=== PATIENT | female | born 1990 | race Caucasian/White ===

== ENCOUNTER 2016-07-28 20:56 | Emergency (ER) | payer OTHER ==
[~2016-07-28] VITALS: Ht 162.6 cm; Wt 78.3 kg
[~2016-07-28 20:56] MED LIST: ACYCLOVIR800 MG PO; AMOX TR-K CLV1 EAC4 PO; BACTRIM,SEPT1 TABLET PO; CEFTIN500 MG PO; CIPRO500 MG PO; CIPROFLOXACIN500 M1; CLEOCIN300 MG PO; DOXYCYCLINE HY100 MG PO; ENDOCET 5-3251 EACH PO; FIORICET WI1 CAPSULE PO; FLEXERIL10 MG PO; FLONASE16 G1 BOTH NARES; HYDROCODON-ACE1 EAC7 PO; KEFLEX500 MG PO; LEVAQUIN500 MG PO; LIDOCAINE20 MG/1 M5 TP; MACRODANTIN100 MG PO; MAGIC MOUTHWASH1 ML MM; METRONIDAZOLE500 MG; MOTRIN600 MG PO; MOTRIN800 MG PO; Motrin PO; NAPROSYN500 MG PO; NITROFURANTOIN100 M3 PO; NORCO 5/3251 TABLET PO; ONDANSETRON ODT8 MG PO; OXYCODONE H5 MG/5 ML PO; PERCOCET 5/31 TABLET PO; PHENAZOPYRIDIN200 MG; PHENERGAN25 MG PR; PREDNISONE50 MG PO; PRENATAL TABLE1 EAC3 PO; PROMETHAZINE HC25 M1 PO; REGLAN5 MG PO; ROBITUSSIN DM118 ML PO; SERTRALINE HCL50 MG PO; SPRINTEC1 EACH; TAMIFLU75 MG PO; TYLENOL EXTRA500 MG PO; TYLENOL REGULA325 MG PO; TYLENOL W/COD1 COMBO PO; TYLENOL WITH C1 EACH PO; ULTRAM50 MG PO; VALTREX1000 MG PO; VENTOLIN HFA18 GM IH; Vibramycin, Doryx PO; XANAX0.25 MG PO; ZITHROMAX Z-PA250 MG PO; ZOFRAN ODT4 MG PO; ZOFRAN ODT8 MG PO; ZOFRAN4 MG PO; ZOFRAN8 MG PO; ZOLOFT50 MG PO
[2016-07-28 21:19] LABS: ADD MIUA? YES; BILIRUBIN NEGATIVE; BLOOD TRACE; COLOR YELLOW ((YELLOW)); GLUCOSE (STRIP) NEGATIVE; KETONES NEGATIVE; LEUKOCYTES TRACE; NITRITE NEGATIVE; PH, URINE 6.5 (5-8); PROTEIN (STRIP) NEGATIVE; SPECIFIC GRAVITY 1.009 (1.000-1.030); UROBILINOGEN 0.2 MG/DL (0.2-1.0)
[2016-07-28 21:20] LABS: HEMATOCRIT 35.7 % (36.0-46.0); MCH 25.5 PG (29.0-34.0); MCHC 31.7 G/DL (30.0-36.0); MCV 80.6 FL (83-99); MEAN PLAT.VOLUME 9.7 uM^3 (9.5-12.4); PLATELET COUNT 379 K/uL (156-360); RBC DIS.WIDTH-SD 55.1 % (39-53); RED BLOOD COUNT 4.43 M/uL (3.80-5.20); WHITE BLOOD COUNT 8.8 K/uL (4.1-10.2)
[2016-07-28 21:28] LABS: CHLORIDE 105 mEq/L (99-109); SODIUM 137 mEq/L (136-147)
[2016-07-28 21:31] LABS: GLUCOSE 87 mg/dL (70-99)
[2016-07-28 21:32] LABS: BACTERIA NONE SEEN; CASTS NONE SEEN /LPF; CRYSTALS NONE SEEN; EPITHELIAL CELLS 1+; MUCUS NONE SEEN; PATHOLOGICAL CAST NONE SEEN; RED BLOOD CELLS 0-5 /HPF (0-5); SMALL ROUND CELL NONE SEEN; UCUL ADDED? NO; YEAST-LIKE CELL NONE SEEN
[2016-07-28 21:32] LABS: ANION GAP 9 MEQ/L (2-14); TOTAL BILIRUBIN 0.3 mg/dL (0.0-1.0)
[2016-07-28 21:34] LABS: ALKALINE PHOSPHATASE 85 IU/L (3-129); GFR ESTIMATE (CALCULATED) > 59 mL/min/
[2016-07-28 21:35] LABS: UREA NITROGEN (BUN) 7 mg/dL (9-23)
[2016-07-28 22:01] LABS: QUANTITATIVE HCG 21120.9 MIU/ML
[2016-07-28] MEDS ORDERED: ZOFRAN4 MG PO (22:19)
[2016-07-28 23:02] VITALS: BP 107/60
== END 2016-07-28 23:04 | disposition home or self-care (01) ==
LOC: EME 20:56
DX: O21.9 Vomiting of pregnancy, unspecified (principal); O26.891 Other specified pregnancy related conditions, first trimester; R10.30 Lower abdominal pain, unspecified; Z3A.01 Less than 8 weeks gestation of pregnancy; Z87.442 Personal history of urinary calculi; Z87.01 Personal history of pneumonia (recurrent)
CPT/HCPCS: 80053; 81003; 84702; 85027; 99281; 99284

== ENCOUNTER 2016-07-30 18:36 | Emergency (ER) | payer OTHER ==
[~2016-07-30] VITALS: Ht 162.6 cm; Wt 77.7 kg
[2016-07-30 19:24] LABS: ADD MIUA? YES; BILIRUBIN NEGATIVE; BLOOD LARGE; COLOR YELLOW ((YELLOW)); GLUCOSE (STRIP) NEGATIVE; KETONES NEGATIVE; LEUKOCYTES SMALL; NITRITE NEGATIVE; PROTEIN (STRIP) NEGATIVE; SPECIFIC GRAVITY 1.006 (1.000-1.030); UROBILINOGEN 0.2 MG/DL (0.2-1.0)
[2016-07-30 19:29] LABS: HEMATOCRIT 35.6 % (36.0-46.0); MCH 25.4 PG (29.0-34.0); MCHC 31.2 G/DL (30.0-36.0); MCV 81.5 FL (83-99); MEAN PLAT.VOLUME 10.5 uM^3 (9.5-12.4); PLATELET COUNT 344 K/uL (156-360); RBC DIS.WIDTH-CV 19.6 % (11.8-14.6); RBC DIS.WIDTH-SD 57.3 % (39-53); RED BLOOD COUNT 4.37 M/uL (3.80-5.20)
[2016-07-30 19:30] LABS: EOSINOPHIL (%) 0.9 % (0-5); EOSINOPHIL COUNT 0.1 K/uL (0-0.3); IMMATURE GRANULOCYTE (%) 0.1 % (0.0-0.7); IMMATURE GRANULOCYTE COUNT 0.1 K/uL; LYMPHOCYTE COUNT 1.9 K/uL (1.0-2.8); MONOCYTE (%) 13.5 % (3-12); MONOCYTE COUNT 0.9 K/uL (0-0.8); NEUTROPHIL (%) 57.9 % (45-76)
[2016-07-30 19:36] LABS: EPITHELIAL CELLS 1+
[2016-07-30 19:37] LABS: CHLORIDE 107 mEq/L (99-109); SODIUM 138 mEq/L (136-147)
[2016-07-30 19:37] LABS: BACTERIA 1+; CASTS NONE SEEN /LPF; CRYSTALS NONE SEEN; MUCUS NONE SEEN; UCUL ADDED? NO
[2016-07-30 19:39] LABS: GLUCOSE 98 mg/dL (70-99)
[2016-07-30 19:40] LABS: ANION GAP 13 MEQ/L (2-14)
[2016-07-30 19:42] LABS: GFR ESTIMATE (CALCULATED) > 59 mL/min/
[2016-07-30 19:43] LABS: UREA NITROGEN (BUN) 7 mg/dL (9-23)
[2016-07-30 20:07] LABS: QUANTITATIVE HCG 24421.4 MIU/ML
[2016-07-30 20:41] VITALS: BP 111/74
== END 2016-07-30 20:45 | disposition home or self-care (01) ==
LOC: EME 18:36
PROVIDERS: Physician Assistant
DX: O20.0 Threatened abortion (principal); Z3A.01 Less than 8 weeks gestation of pregnancy
CPT/HCPCS: 76801; 80048; 81003; 84702; 85025; 86900; 86901; 99281; 99284

== ENCOUNTER 2016-08-02 21:01 | Emergency (ER) | payer OTHER ==
[~2016-08-02] VITALS: Ht 162.6 cm; Wt 77.3 kg
[2016-08-02 22:33] LABS: HEMATOCRIT 37.2 % (36.0-46.0); MCH 25.8 PG (29.0-34.0); MCHC 31.7 G/DL (30.0-36.0); MCV 81.4 FL (83-99); MEAN PLAT.VOLUME 10.1 uM^3 (9.5-12.4); PLATELET COUNT 386 K/uL (156-360); RBC DIS.WIDTH-CV 18.8 % (11.8-14.6); RBC DIS.WIDTH-SD 55.4 % (39-53); RED BLOOD COUNT 4.57 M/uL (3.80-5.20); WHITE BLOOD COUNT 10.7 K/uL (4.1-10.2)
[2016-08-03] LABS: ADD MIUA? YES; BILIRUBIN NEGATIVE; BLOOD LARGE; COLOR YELLOW ((YELLOW)); GLUCOSE (STRIP) NEGATIVE; KETONES NEGATIVE; LEUKOCYTES MODERATE; NITRITE NEGATIVE; PROTEIN (STRIP) 30; SPECIFIC GRAVITY 1.031 (1.000-1.030); UROBILINOGEN 0.2 MG/DL (0.2-1.0)
[2016-08-03 00:49] VITALS: BP 123/78
[2016-08-03 01:44] LABS: RED BLOOD CELLS TNTC /HPF (0-5); WHITE BLOOD CELLS 20-30 /HPF (0-5)
[2016-08-03 01:45] LABS: BACTERIA 2+; CASTS NONE SEEN /LPF; CRYSTALS NONE SEEN; EPITHELIAL CELLS 2+; MUCUS 1+; UCUL ADDED? YES
== END 2016-08-03 00:59 | disposition home or self-care (01) ==
LOC: EME 21:01 → RME 21:01
DX: O20.0 Threatened abortion (principal); Z3A.01 Less than 8 weeks gestation of pregnancy; Z87.442 Personal history of urinary calculi; Z87.01 Personal history of pneumonia (recurrent); Z91.040 Latex allergy status; Z88.1 Allergy status to other antibiotic agents
CPT/HCPCS: 76801; 81003; 84702; 85027; 87086; 99281; 99284

== ENCOUNTER 2016-08-05 18:27 | Emergency (ER) | payer OTHER ==
[~2016-08-05] VITALS: Ht 162.6 cm; Wt 77.1 kg
[2016-08-05 19:35] LABS: HEMATOCRIT 35.1 % (36.0-46.0); MCH 25.6 PG (29.0-34.0); MCHC 31.1 G/DL (30.0-36.0); MCV 82.4 FL (83-99); MEAN PLAT.VOLUME 10.3 uM^3 (9.5-12.4); PLATELET COUNT 424 K/uL (156-360); RBC DIS.WIDTH-CV 18.4 % (11.8-14.6); RED BLOOD COUNT 4.26 M/uL (3.80-5.20); WHITE BLOOD COUNT 10.9 K/uL (4.1-10.2)
[2016-08-05 19:43] LABS: CHLORIDE 106 mEq/L (99-109); POTASSIUM 4.5 mEq/L (3.7-5.4); SODIUM 137 mEq/L (136-147)
[2016-08-05 19:45] LABS: GLUCOSE 91 mg/dL (70-99)
[2016-08-05 19:47] LABS: ANION GAP 9 MEQ/L (2-14)
[2016-08-05 19:49] LABS: GFR ESTIMATE (CALCULATED) > 59 mL/min/
[2016-08-05 19:50] LABS: UREA NITROGEN (BUN) 8 mg/dL (9-23)
[2016-08-05 20:12] LABS: ADD MIUA? YES; BILIRUBIN NEGATIVE; BLOOD LARGE; COLOR YELLOW ((YELLOW)); GLUCOSE (STRIP) NEGATIVE; KETONES NEGATIVE; LEUKOCYTES TRACE; NITRITE NEGATIVE; PH, URINE 5.5 (5-8); PROTEIN (STRIP) TRACE; SPECIFIC GRAVITY 1.018 (1.000-1.030); UROBILINOGEN 0.2 MG/DL (0.2-1.0)
[2016-08-05 20:25] LABS: RED BLOOD CELLS TNTC /HPF (0-5); WHITE BLOOD CELLS 0-5 /HPF (0-5)
[2016-08-05 20:26] LABS: BACTERIA RARE; CASTS NONE SEEN /LPF; CRYSTALS NONE SEEN; EPITHELIAL CELLS 1+; MUCUS NONE SEEN; UCUL ADDED? NO
[2016-08-05 22:15] VITALS: BP 111/80
[2016-08-05] MEDS ORDERED: MOTRIN800 MG PO (23:08)
[2016-08-05] MEDS ORDERED: PERCOCET 5/31 TABLET PO (23:08)
== END 2016-08-05 23:32 | disposition home or self-care (01) ==
LOC: EME 18:27
DX: O03.4 Incomplete spontaneous abortion without complication (principal); Z87.442 Personal history of urinary calculi
CPT/HCPCS: 76801; 80048; 81003; 84702; 85027; 99281; 99285; J1885; J2270; J7030

== ENCOUNTER 2016-08-22 18:00 | Emergency (ER) | payer OTHER ==
[~2016-08-22] VITALS: Ht 162.6 cm; Wt 78.0 kg
[2016-08-22 18:37] LABS: HEMATOCRIT 36.8 % (36.0-46.0); MCH 26.1 PG (29.0-34.0); MCHC 31.5 G/DL (30.0-36.0); MCV 82.9 FL (83-99); MEAN PLAT.VOLUME 10.4 uM^3 (9.5-12.4); PLATELET COUNT 473 K/uL (156-360); RBC DIS.WIDTH-CV 16.9 % (11.8-14.6); RBC DIS.WIDTH-SD 50.7 % (39-53); RED BLOOD COUNT 4.44 M/uL (3.80-5.20); WHITE BLOOD COUNT 9.6 K/uL (4.1-10.2)
[2016-08-22 18:46] LABS: CHLORIDE 107 mEq/L (99-109); POTASSIUM 4.2 mEq/L (3.7-5.4); SODIUM 137 mEq/L (136-147)
[2016-08-22 18:47] LABS: GLUCOSE 84 mg/dL (70-99)
[2016-08-22 18:49] LABS: ANION GAP 9 MEQ/L (2-14)
[2016-08-22 18:51] LABS: GFR ESTIMATE (CALCULATED) > 59 mL/min/
[2016-08-22 18:52] LABS: UREA NITROGEN (BUN) 13 mg/dL (9-23)
[2016-08-22 20:40] LABS: TROP-I INTERPRETATION NEGATIVE; TROPONIN-I < 0.01 ng/mL (0.0-0.30)
[2016-08-22 21:47] VITALS: BP 115/82
== END 2016-08-22 21:49 | disposition home or self-care (01) ==
LOC: RME 18:00 → EME 18:00 → RME 21:49
DX: R06.02 Shortness of breath (principal); R07.9 Chest pain, unspecified
CPT/HCPCS: 71020; 80048; 84484; 85027; 93005; 94640; 99281; 99283

== ENCOUNTER 2016-09-10 10:37 | Emergency (ER) | payer OTHER ==
[~2016-09-10] VITALS: Ht 162.6 cm; Wt 77.9 kg
[2016-09-10 12:06] LABS: ADD MIUA? NO; BILIRUBIN NEGATIVE; BLOOD NEGATIVE; COLOR STRAW ((YELLOW)); GLUCOSE (STRIP) NEGATIVE; KETONES NEGATIVE; LEUKOCYTES NEGATIVE; NITRITE NEGATIVE; PROTEIN (STRIP) NEGATIVE; UCUL ADDED? NO; UROBILINOGEN 0.2 MG/DL (0.2-1.0)
[2016-09-10 12:09] LABS: HEMATOCRIT 33.6 % (36.0-46.0); MCH 25.9 PG (29.0-34.0); MCHC 31.5 G/DL (30.0-36.0); MCV 82.2 FL (83-99); MEAN PLAT.VOLUME 10.7 uM^3 (9.5-12.4); PLATELET COUNT 373 K/uL (156-360); RBC DIS.WIDTH-CV 15.8 % (11.8-14.6); RED BLOOD COUNT 4.09 M/uL (3.80-5.20); WHITE BLOOD COUNT 9.5 K/uL (4.1-10.2)
[2016-09-10 12:21] LABS: CHLORIDE 109 mEq/L (99-109); POTASSIUM 4.5 mEq/L (3.7-5.4); SODIUM 138 mEq/L (136-147)
[2016-09-10 12:23] LABS: GLUCOSE 88 mg/dL (70-99)
[2016-09-10 12:24] LABS: ANION GAP 8 MEQ/L (2-14)
[2016-09-10 12:27] LABS: GFR ESTIMATE (CALCULATED) > 59 mL/min/
[2016-09-10 12:28] LABS: UREA NITROGEN (BUN) 9 mg/dL (9-23)
[2016-09-10 12:36] LABS: QUANTITATIVE HCG < 4.0 MIU/ML
[2016-09-10 13:03] VITALS: BP 134/78
== END 2016-09-10 13:04 | disposition home or self-care (01) ==
LOC: EME 10:37
PROVIDERS: Nurse Practitioner Family
DX: R10.11 Right upper quadrant pain (principal); R30.0 Dysuria
CPT/HCPCS: 80048; 81003; 84702; 85027; 99281; 99284

== ENCOUNTER 2016-10-21 00:14 | Emergency (ER) | payer OTHER ==
[~2016-10-21] VITALS: Ht 162.6 cm; Wt 81.2 kg
[2016-10-21] MEDS ORDERED: AMOXICILLIN500 MG PO (02:03)
[2016-10-21] MEDS ORDERED: NORCO 5/3251 TABLET PO (02:03)
[2016-10-21 02:17] VITALS: BP 128/89
== END 2016-10-21 02:18 | disposition home or self-care (01) ==
LOC: EME 00:14
DX: K08.89 Other specified disorders of teeth and supporting structures (principal); H92.02 Otalgia, left ear; R05 Cough
CPT/HCPCS: 99281; 99283

== ENCOUNTER 2016-10-30 14:11 | Emergency (ER) | payer OTHER ==
[~2016-10-30] VITALS: Ht 162.6 cm; Wt 78.7 kg
[~2016-10-30 14:11] MED LIST changes: +AMOXICILLIN500 MG PO
[2016-10-30 14:47] VITALS: BP 110/55
[2016-10-30] MEDS ORDERED: MOTRIN800 MG PO (16:23)
[2016-10-30] MEDS ORDERED: FLEXERIL10 MG PO (16:23)
== END 2016-10-30 16:51 | disposition home or self-care (01) ==
LOC: EME 14:11
DX: S39.012A Strain of muscle, fascia and tendon of lower back, initial encounter (principal); X50.9XXA Other and unspecified overexertion or strenuous movements or postures, initial encounter
CPT/HCPCS: 99281; 99284

== ENCOUNTER 2017-04-01 01:15 | Emergency (ER) | payer OTHER ==
[~2017-04-01] VITALS: Ht 157.5 cm; Wt 81.1 kg
[2017-04-01] MEDS ORDERED: PROVENTIL,2.5 MG/3 M IH (04:46)
[2017-04-01] MEDS ORDERED: MEDROL DOSEPAK4 MG PO (04:46)
[2017-04-01 05:01] VITALS: BP 133/71
== END 2017-04-01 05:02 | disposition home or self-care (01) ==
LOC: EME 01:15
DX: J06.9 Acute upper respiratory infection, unspecified (principal); J45.909 Unspecified asthma, uncomplicated
CPT/HCPCS: 94640; 99281; 99283

== ENCOUNTER 2017-05-05 01:02 | Emergency (ER) | payer OTHER ==
[~2017-05-05] VITALS: Ht 162.6 cm; Wt 82.4 kg
[~2017-05-05 01:02] MED LIST changes: +MEDROL DOSEPAK4 MG PO; +PROVENTIL,2.5 MG/3 M IH
[2017-05-05 01:34] LABS: HEMATOCRIT 37.1 % (36.0-46.0); MCH 27.4 PG (29.0-34.0); MCHC 31.8 G/DL (30.0-36.0); MCV 86.1 FL (83-99); MEAN PLAT.VOLUME 10.2 uM^3 (9.5-12.4); PLATELET COUNT 411 K/uL (156-360); RBC DIS.WIDTH-CV 17.4 % (11.8-14.6); RBC DIS.WIDTH-SD 55.2 % (39-53); RED BLOOD COUNT 4.31 M/uL (3.80-5.20); WHITE BLOOD COUNT 12.3 K/uL (4.1-10.2)
[2017-05-05 01:44] LABS: CHLORIDE 104 mEq/L (99-109); POTASSIUM 3.3 mEq/L (3.7-5.4); SODIUM 138 mEq/L (136-147)
[2017-05-05 01:46] LABS: GLUCOSE 81 mg/dL (70-99)
[2017-05-05 01:48] LABS: ANION GAP 12 MEQ/L (2-14); TOTAL BILIRUBIN 0.3 mg/dL (0.0-1.0)
[2017-05-05 01:50] LABS: ALKALINE PHOSPHATASE 92 IU/L (3-129); GFR ESTIMATE (CALCULATED) > 59 mL/min/
[2017-05-05 01:51] LABS: UREA NITROGEN (BUN) 7 mg/dL (9-23)
[2017-05-05 01:52] LABS: ADD MIUA? YES; BILIRUBIN NEGATIVE; BLOOD NEGATIVE; COLOR STRAW ((YELLOW)); GLUCOSE (STRIP) NEGATIVE; KETONES NEGATIVE; LEUKOCYTES SMALL; NITRITE NEGATIVE; PROTEIN (STRIP) NEGATIVE; SPECIFIC GRAVITY 1.004 (1.000-1.030); UROBILINOGEN 0.2 MG/DL (0.2-1.0)
[2017-05-05 01:54] LABS: LIPASE 20 U/L (1.0-51.0)
[2017-05-05 02:02] LABS: QUANTITATIVE HCG 301.8 MIU/ML
[2017-05-05 02:52] LABS: BACTERIA NONE SEEN /HPF; EPITHELIAL CELLS 3+ /HPF; MUCUS NONE SEEN /LPF; RED BLOOD CELLS NONE SEEN /HPF (0-5); UCUL ADDED? NO; WHITE BLOOD CELLS NONE SEEN /HPF (0-5)
[2017-05-05] MEDS ORDERED: [UNRECOGNIZED DRUG - OTHER] PO (04:10)
[2017-05-05 04:24] VITALS: BP 120/85
== END 2017-05-05 04:25 | disposition home or self-care (01) ==
LOC: EME 01:02
DX: O99.611 Diseases of the digestive system complicating pregnancy, first trimester (principal); K80.20 Calculus of gallbladder without cholecystitis without obstruction; Z3A.00 Weeks of gestation of pregnancy not specified; Z91.040 Latex allergy status
CPT/HCPCS: 76705; 76801; 80053; 81003; 83690; 84702; 85027; 99281; 99284

== ENCOUNTER 2017-07-28 00:06 | Emergency (ER) | payer OTHER ==
[~2017-07-28] VITALS: Ht 162.6 cm; Wt 78.0 kg
[~2017-07-28 00:06] MED LIST changes: +[UNRECOGNIZED DRUG - OTHER] PO
[2017-07-28 01:58] LABS: BASOPHIL (%) 0.3 % (0-1); EOSINOPHIL COUNT 0.1 K/uL (0-0.3); HEMOGLOBIN 11.4 G/DL (11.9-15.5); IMMATURE GRANULOCYTE (%) 0.5 % (0.0-0.7); LYMPHOCYTE (%) 24.1 % (15-42); LYMPHOCYTE COUNT 2.9 K/uL (1.0-2.8); MCH 28.5 PG (29.0-34.0); MCHC 32.6 G/DL (30.0-36.0); MCV 87.5 FL (83-99); MONOCYTE (%) 7.7 % (3-12); MONOCYTE COUNT 0.9 K/uL (0-0.8); NEUTROPHIL (%) 66.4 % (45-76); NEUTROPHIL COUNT 7.9 K/uL (1.8-6.4); PLATELET COUNT 328 K/uL (156-360); RBC DIS.WIDTH-CV 16.3 % (11.8-14.6); RBC DIS.WIDTH-SD 52.4 % (39-53)
[2017-07-28 02:11] LABS: CHLORIDE 105 mEq/L (99-109); POTASSIUM 3.7 mEq/L (3.7-5.4); SODIUM 136 mEq/L (136-147)
[2017-07-28 02:12] LABS: GLUCOSE 86 mg/dL (70-99)
[2017-07-28 02:16] LABS: CREATININE 0.6 mg/dL (0.6-1.3); GFR ESTIMATE (CALCULATED) > 59 mL/min/
[2017-07-28 02:17] LABS: UREA NITROGEN (BUN) 8 mg/dL (9-23)
[2017-07-28 03:05] LABS: APPEARANCE CLEAR ((CLEAR)); BILIRUBIN NEGATIVE; BLOOD NEGATIVE; COLOR STRAW ((YELLOW)); GLUCOSE (STRIP) NEGATIVE; KETONES NEGATIVE; LEUKOCYTES NEGATIVE; NITRITE NEGATIVE; PROTEIN (STRIP) NEGATIVE; SPECIFIC GRAVITY 1.005 (1.000-1.030); UCUL ADDED? NO; UROBILINOGEN 0.2 MG/DL (0.2-1.0)
[2017-07-28 06:03] VITALS: BP 130/75
== END 2017-07-28 06:03 | disposition home or self-care (01) ==
LOC: EME 00:06
PROVIDERS: Emergency Medicine Emergency Medical Services
DX: O26.892 Other specified pregnancy related conditions, second trimester (principal); R10.30 Lower abdominal pain, unspecified; Z87.442 Personal history of urinary calculi; O99.282 Endocrine, nutritional and metabolic diseases complicating pregnancy, second trimester; E86.0 Dehydration; Z3A.16 16 weeks gestation of pregnancy; O99.342 Other mental disorders complicating pregnancy, second trimester; F41.9 Anxiety disorder, unspecified; F32.9 Major depressive disorder, single episode, unspecified; Z91.040 Latex allergy status; Z88.1 Allergy status to other antibiotic agents
CPT/HCPCS: 80048; 81003; 85025; 99281; 99285; J0696

== ENCOUNTER 2017-08-04 00:56 | Emergency (ER) | payer OTHER ==
[~2017-08-04] VITALS: Ht 162.6 cm; Wt 77.0 kg
[2017-08-04 03:27] LABS: HEMATOCRIT 33.5 % (36.0-46.0); HEMOGLOBIN 11.1 G/DL (11.9-15.5); MCHC 33.1 G/DL (30.0-36.0); MCV 87.5 FL (83-99); PLATELET COUNT 307 K/uL (156-360); RBC DIS.WIDTH-CV 16.2 % (11.8-14.6); RBC DIS.WIDTH-SD 51.6 % (39-53); RED BLOOD COUNT 3.83 M/uL (3.80-5.20); WHITE BLOOD COUNT 12.4 K/uL (4.1-10.2)
[2017-08-04 03:31] LABS: APPEARANCE SL.HAZY ((CLEAR)); BILIRUBIN NEGATIVE; BLOOD NEGATIVE; COLOR YELLOW ((YELLOW)); GLUCOSE (STRIP) NEGATIVE; KETONES NEGATIVE; LEUKOCYTES NEGATIVE; NITRITE NEGATIVE; PROTEIN (STRIP) NEGATIVE; SPECIFIC GRAVITY 1.019 (1.000-1.030); UROBILINOGEN 0.2 MG/DL (0.2-1.0)
[2017-08-04 03:34] LABS: BACTERIA RARE /HPF; EPITHELIAL CELLS 3+ /HPF; MUCUS TRACE /LPF; RED BLOOD CELLS 0-5 /HPF (0-5); UCUL ADDED? NO; WHITE BLOOD CELLS 0-5 /HPF (0-5)
[2017-08-04 03:35] LABS: CHLORIDE 108 mEq/L (99-109); SODIUM 137 mEq/L (136-147)
[2017-08-04 03:37] LABS: GLUCOSE 76 mg/dL (70-99)
[2017-08-04 03:40] LABS: CREATININE 0.6 mg/dL (0.6-1.3); GFR ESTIMATE (CALCULATED) > 59 mL/min/
[2017-08-04 03:41] LABS: UREA NITROGEN (BUN) 5 mg/dL (9-23)
[2017-08-04 10:34] VITALS: BP 111/76
== END 2017-08-04 10:34 | disposition home or self-care (01) ==
LOC: EME 00:56
PROVIDERS: Physician Assistant
DX: O26.892 Other specified pregnancy related conditions, second trimester (principal); R10.9 Unspecified abdominal pain; O99.342 Other mental disorders complicating pregnancy, second trimester; F32.9 Major depressive disorder, single episode, unspecified; F41.9 Anxiety disorder, unspecified; O34.82 Maternal care for other abnormalities of pelvic organs, second trimester; N83.209 Unspecified ovarian cyst, unspecified side; Z3A.17 17 weeks gestation of pregnancy; Z87.442 Personal history of urinary calculi; Z88.1 Allergy status to other antibiotic agents; Z91.040 Latex allergy status
CPT/HCPCS: 71045; 76770; 76805; 80048; 81003; 85027; 93005; 93970; 99281; 99284

== ENCOUNTER 2017-09-09 16:36 | Outpatient (CLI) | payer OTHER ==
[~2017-09-09] VITALS: Ht 162.6 cm; Wt 79.1 kg
[2017-09-09] MEDS ORDERED: TYLENOL REGULA325 MG PO (16:52)
[2017-09-09] MEDS ORDERED: ZOLOFT50 MG PO (16:53)
[2017-09-09 17:01] VITALS: BP 106/64
[2017-09-09 18:46] VITALS: BP 108/74
== END 2017-09-09 20:13 | disposition home or self-care (01) ==
LOC: LDRP-OP 16:36 → 2WEST 16:37
DX: O9A.212 Injury, poisoning and certain other consequences of external causes complicating pregnancy, second trimester (principal); W50.0XXA Accidental hit or strike by another person, initial encounter; O99.342 Other mental disorders complicating pregnancy, second trimester; F32.9 Major depressive disorder, single episode, unspecified; O99.212 Obesity complicating pregnancy, second trimester; E66.9 Obesity, unspecified; Z68.33 Body mass index [BMI] 33.0-33.9, adult; O98.512 Other viral diseases complicating pregnancy, second trimester; B00.9 Herpesviral infection, unspecified; Z87.442 Personal history of urinary calculi; Z3A.22 22 weeks gestation of pregnancy
CPT/HCPCS: 59025; 76805; 90686; G0378

== ENCOUNTER 2017-11-12 14:50 | Outpatient (CLI) | payer OTHER ==
[~2017-11-12] VITALS: Ht 162.6 cm; Wt 79.8 kg
[2017-11-12 15:14] VITALS: BP 105/66
[2017-11-12] MEDS ORDERED: EXPECTA PRENAT1 EACH PO (16:00)
[2017-11-12 16:12] VITALS: BP 114/80
[2017-11-12 18:59] VITALS: BP 113/59
[2017-11-12 22:02] VITALS: BP 103/67
[2017-11-13 03:00] VITALS: BP 98/57
[2017-11-13 07:34] VITALS: BP 107/61
[2017-11-13 11:01] VITALS: BP 116/73
[2017-11-14] MEDS ORDERED: PROTONIX40 MG PO (17:35)
== END 2017-11-13 14:10 | disposition home or self-care (01) ==
LOC: LDRP-OP 14:50 → 2WEST 14:51 → LDRP-OP 02-06 20:32
DX: O36.8130 Decreased fetal movements, third trimester, not applicable or unspecified (principal); O99.343 Other mental disorders complicating pregnancy, third trimester; F41.9 Anxiety disorder, unspecified; F32.9 Major depressive disorder, single episode, unspecified; O99.213 Obesity complicating pregnancy, third trimester; E66.9 Obesity, unspecified; O32.1XX0 Maternal care for breech presentation, not applicable or unspecified; Z3A.32 32 weeks gestation of pregnancy; O26.93 Pregnancy related conditions, unspecified, third trimester; R07.9 Chest pain, unspecified
CPT/HCPCS: 59025; 76818; 93005; G0378; J0702

== ENCOUNTER 2017-11-14 16:14 | Outpatient (CLI) | payer OTHER ==
[~2017-11-14 16:14] MED LIST changes: +EXPECTA PRENAT1 EACH PO
[2017-11-14 16:32] VITALS: BP 108/72
[2017-11-14 17:02] LABS: BASOPHIL (%) 0.1 % (0-1); EOSINOPHIL (%) 0.1 % (0-5); HEMATOCRIT 28.2 % (36.0-46.0); HEMOGLOBIN 9.1 G/DL (11.9-15.5); IMMATURE GRANULOCYTE (%) 4.6 % (0.0-0.7); LYMPHOCYTE (%) 11.3 % (15-42); LYMPHOCYTE COUNT 2.4 K/uL (1.0-2.8); MCH 27.8 PG (29.0-34.0); MCHC 32.3 G/DL (30.0-36.0); MCV 86.2 FL (83-99); MONOCYTE (%) 7.7 % (3-12); MONOCYTE COUNT 1.6 K/uL (0-0.8); NEUTROPHIL (%) 76.2 % (45-76); NEUTROPHIL COUNT 16.1 K/uL (1.8-6.4); PLATELET COUNT 350 K/uL (156-360); RBC DIS.WIDTH-CV 15.4 % (11.8-14.6); RBC DIS.WIDTH-SD 48.3 % (39-53); RED BLOOD COUNT 3.27 M/uL (3.80-5.20); WHITE BLOOD COUNT 21.2 K/uL (4.1-10.2)
[2017-11-14 17:05] LABS: ALBUMIN 3.4 g/dL (3.2-4.8); CHLORIDE 107 mEq/L (99-109); SODIUM 138 mEq/L (136-147)
[2017-11-14 17:07] LABS: GLUCOSE 91 mg/dL (70-99); TOTAL PROTEIN 6.1 g/dL (6.4-8.3)
[2017-11-14 17:09] LABS: TOTAL BILIRUBIN 0.3 mg/dL (0.0-1.0)
[2017-11-14 17:11] LABS: ALKALINE PHOSPHATASE 88 IU/L (3-129); CREATININE 0.5 mg/dL (0.6-1.3); GFR ESTIMATE (CALCULATED) > 59 mL/min/
[2017-11-14 17:12] LABS: UREA NITROGEN (BUN) 6 mg/dL (9-23)
[2017-11-14 17:13] LABS: AST (GOT) 9 IU/L (2-34)
[2017-11-14 17:14] LABS: ALT (GPT) 5 IU/L (3-49)
[2017-11-14 17:22] LABS: AMPHETAMINE NEGATIVE (500 ng/mL); BENZODIAZEPINES NEGATIVE (150 ng/mL); COCAINE NEGATIVE (150 ng/mL); METHAMPHETAMINE NEGATIVE (500 ng/mL); OPIATES (MORPHINE) NEGATIVE (100 ng/mL); PHENCYCLIDINE NEGATIVE (25 ng/mL); THC CANNABINOIDS NEGATIVE (50 ng/mL)
[2017-11-14 17:23] LABS: BARBITURATES NEGATIVE (200 ng/mL); BUPRENORPHINE NEGATIVE (10 ng/mL); METHADONE NEGATIVE (200 ng/mL); OXYCODONE NEGATIVE (100 ng/mL); PROPOXYPHENE NEGATIVE (300 ng/mL); TRICYCLIC ANTIDEPRESSANTS NEGATIVE (300 ng/mL)
[2017-11-14] MEDS ORDERED: PROTONIX40 MG PO (17:35)
[2017-11-14 20:49] VITALS: BP 107/58
[2017-11-14 23:23] LABS: UR CREATININE CONCENTRATION 67.5 MG/DL
[2017-11-15 01:24] VITALS: BP 106/61
[2017-11-15 04:37] VITALS: BP 90/54
[2017-11-15 07:08] VITALS: BP 103/60
[2017-11-15 08:41] LABS: BASOPHIL (%) 0.3 % (0-1); BASOPHIL COUNT 0.1 K/uL (0-0.1); EOSINOPHIL (%) 0.4 % (0-5); EOSINOPHIL COUNT 0.1 K/uL (0-0.3); HEMATOCRIT 26.4 % (36.0-46.0); HEMOGLOBIN 8.1 G/DL (11.9-15.5); IMMATURE GRANULOCYTE (%) 3.1 % (0.0-0.7); LYMPHOCYTE (%) 14.9 % (15-42); LYMPHOCYTE COUNT 2.9 K/uL (1.0-2.8); MCH 27.4 PG (29.0-34.0); MCHC 30.7 G/DL (30.0-36.0); MCV 89.2 FL (83-99); MONOCYTE (%) 4.8 % (3-12); NEUTROPHIL (%) 76.5 % (45-76); NEUTROPHIL COUNT 15.1 K/uL (1.8-6.4); PLATELET COUNT 345 K/uL (156-360); RBC DIS.WIDTH-CV 15.5 % (11.8-14.6); RBC DIS.WIDTH-SD 51.2 % (39-53); RED BLOOD COUNT 2.96 M/uL (3.80-5.20); WHITE BLOOD COUNT 19.7 K/uL (4.1-10.2)
[2017-11-15 10:41] VITALS: BP 100/56
[2017-11-15] MEDS ORDERED: PANTOPRAZOLE SO40 MG PO (13:29)
[2017-11-18 05:06] LABS: Folate, RBC 27.7 % (())
== END 2017-11-15 14:00 | disposition home or self-care (01) ==
LOC: LDRP-OP 16:14 → 2WEST 16:15 → LDRP-OP 02-08 14:23
PROVIDERS: Obstetrics & Gynecology
DX: O36.8930 Maternal care for other specified fetal problems, third trimester, not applicable or unspecified (principal); O99.613 Diseases of the digestive system complicating pregnancy, third trimester; K21.9 Gastro-esophageal reflux disease without esophagitis; O99.013 Anemia complicating pregnancy, third trimester; D64.9 Anemia, unspecified; O99.283 Endocrine, nutritional and metabolic diseases complicating pregnancy, third trimester; E53.8 Deficiency of other specified B group vitamins; O99.343 Other mental disorders complicating pregnancy, third trimester; F32.9 Major depressive disorder, single episode, unspecified; F41.9 Anxiety disorder, unspecified; Z3A.32 32 weeks gestation of pregnancy; Z87.440 Personal history of urinary (tract) infections; Z87.442 Personal history of urinary calculi
CPT/HCPCS: 59025; 76818; 80053; 82570; 82607; 82728; 82747 90; 84156; 85025; G0378; J7120

== ENCOUNTER 2017-12-28 00:11 | Outpatient (CLI) | payer OTHER ==
[~2017-12-28 00:11] MED LIST changes: +PANTOPRAZOLE SO40 MG PO; +PROTONIX40 MG PO
[2017-12-28 00:29] VITALS: BP 126/72
== END 2017-12-28 01:48 | disposition home or self-care (01) ==
LOC: LDRP-OP 00:11 → 2WEST 00:12 → LDRP-OP 02-08 14:06
DX: O26.893 Other specified pregnancy related conditions, third trimester (principal); Z3A.32 32 weeks gestation of pregnancy; R10.13 Epigastric pain
CPT/HCPCS: 59025; G0378

== ENCOUNTER 2017-12-31 07:17 | Inpatient (IN) | payer OTHER ==
[2017-12-31] VITALS (16 sets, daily range): BP systolic 106–131; BP diastolic 66–91
[~2017-12-31] VITALS: Ht 162.6 cm; Wt 79.8 kg
[2017-12-31 08:54] LABS: BASOPHIL (%) 0.4 % (0-1); BASOPHIL COUNT 0.1 K/uL (0-0.1); EOSINOPHIL (%) 0.8 % (0-5); EOSINOPHIL COUNT 0.1 K/uL (0-0.3); HEMATOCRIT 31.6 % (36.0-46.0); HEMOGLOBIN 10.2 G/DL (11.9-15.5); IMMATURE GRANULOCYTE (%) 1.3 % (0.0-0.7); LYMPHOCYTE (%) 19.9 % (15-42); LYMPHOCYTE COUNT 2.8 K/uL (1.0-2.8); MCH 27.1 PG (29.0-34.0); MCHC 32.3 G/DL (30.0-36.0); MONOCYTE (%) 8.2 % (3-12); MONOCYTE COUNT 1.2 K/uL (0-0.8); NEUTROPHIL (%) 69.4 % (45-76); NEUTROPHIL COUNT 9.8 K/uL (1.8-6.4); PLATELET COUNT 351 K/uL (156-360); RBC DIS.WIDTH-CV 17.2 % (11.8-14.6); RBC DIS.WIDTH-SD 53.1 % (39-53); RED BLOOD COUNT 3.76 M/uL (3.80-5.20); WHITE BLOOD COUNT 14.1 K/uL (4.1-10.2)
[2017-12-31 10:44] LABS: APPEARANCE SL.HAZY ((CLEAR)); BILIRUBIN NEGATIVE; BLOOD SMALL; COLOR YELLOW ((YELLOW)); GLUCOSE (STRIP) NEGATIVE; KETONES NEGATIVE; LEUKOCYTES NEGATIVE; NITRITE NEGATIVE; PROTEIN (STRIP) NEGATIVE; SPECIFIC GRAVITY 1.018 (1.000-1.030); UROBILINOGEN 0.2 MG/DL (0.2-1.0)
[2017-12-31 11:10] LABS: BACTERIA NONE SEEN /HPF; EPITHELIAL CELLS 2+ /HPF; MUCUS 1+ /LPF; RED BLOOD CELLS 0-5 /HPF (0-5); WHITE BLOOD CELLS 0-5 /HPF (0-5)
[2017-12-31 11:21] LABS: AMPHETAMINE NEGATIVE (500 ng/mL); BARBITURATES NEGATIVE (200 ng/mL); BENZODIAZEPINES NEGATIVE (150 ng/mL); BUPRENORPHINE NEGATIVE (10 ng/mL); COCAINE NEGATIVE (150 ng/mL); METHADONE NEGATIVE (200 ng/mL); METHAMPHETAMINE NEGATIVE (500 ng/mL); OPIATES (MORPHINE) PRESUMPTIVE POSITIVE (100 ng/mL); OXYCODONE NEGATIVE (100 ng/mL); PHENCYCLIDINE NEGATIVE (25 ng/mL); PROPOXYPHENE NEGATIVE (300 ng/mL); THC CANNABINOIDS NEGATIVE (50 ng/mL); TRICYCLIC ANTIDEPRESSANTS NEGATIVE (300 ng/mL)
[2017-12-31] MEDS ORDERED: MOTRIN800 MG PO (16:02)
[2018-01-01 07:11] VITALS: BP 125/70
[2018-01-01 14:41] VITALS: BP 113/79
[2018-01-02 06:53] VITALS: BP 116/83
== END 2018-01-02 11:25 | disposition home or self-care (01) | DRG 774 ==
LOC: LDRP-OP 07:17 → 2WEST 07:18 → LDRP-OP 08:26 → 2WEST 15:32 → LDRP-OP 02-06 01:54
PROVIDERS: Nurse Practitioner
PROC: 10907ZC Drainage of Amniotic Fluid, Therapeutic from Products of Conception, Via Natural or Artificial Opening (ICD-10-PCS; principal; 2017-12-31)
PROC: 10E0XZZ Delivery of Products of Conception, External Approach (ICD-10-PCS; principal; 2017-12-31)
DX: O77.0 Labor and delivery complicated by meconium in amniotic fluid (principal); O69.81X0 Labor and delivery complicated by cord around neck, without compression, not applicable or unspecified; O99.824 Streptococcus B carrier state complicating childbirth; O99.02 Anemia complicating childbirth; D50.9 Iron deficiency anemia, unspecified; D51.9 Vitamin B12 deficiency anemia, unspecified; O99.344 Other mental disorders complicating childbirth; F41.9 Anxiety disorder, unspecified; F32.9 Major depressive disorder, single episode, unspecified; O99.62 Diseases of the digestive system complicating childbirth; K21.9 Gastro-esophageal reflux disease without esophagitis; O98.32 Other infections with a predominantly sexual mode of transmission complicating childbirth; A60.00 Herpesviral infection of urogenital system, unspecified; O99.214 Obesity complicating childbirth; E66.3 Overweight; Z68.33 Body mass index [BMI] 33.0-33.9, adult; Z91.14 Patient's other noncompliance with medication regimen; Z3A.39 39 weeks gestation of pregnancy; Z37.0 Single live birth
CPT/HCPCS: 81003; 84999; 85025; 87077; 87086; 87186; J2540; J7120